=== PATIENT | female | born 1945 | race Caucasian/White ===

== ENCOUNTER 2020-05-18 09:10 | Emergency (ER) | payer OTHER, MEDICARE ==
[2020-05-18 09:19] VITALS: BP 149/77; PULSE 79; TEMP 98.7; BMI 25.7
[2020-05-18] MEDS ORDERED: ACETAMINOPHEN 325 MG TABLET (FP) PO ONE (09:49)
[2020-05-18] MEDS ORDERED: ACETAMINOPHEN 325 MG TABLET (FP) ONE (09:55)
--- NOTE | 2020-05-18 10:20 | PDOC ---
History of Present Illness - General Chief Complaint: Injury Stated Complaint: RGT HAND SWOLLEN Time Seen by Provider: 05/18/20 09:38 History Source: Patient Exam Limitations: No Limitations - History of Present Illness Initial Comments: 05/18/20 10:19 HPI: 74yo F pmh HTN, HLD, COPD (CPAP), polymyalgia (on prednisone), presenting with right hand pain since a puncture wound to the palm yesterday at noon. Punctured by brown glass bottle on palm of right hand 1cm proximal to ring finger MCP. Patient reports difficulty extending her finger last night due to swelling and pain, improved today. Noticed redness around the puncture side this morning expanding to 1cm diameter, pain at the MCP joint. Denies fevers, chills, nausea vomiting. States that no matter what she cannot stay the night in the hospital. All: NKDA Meds: Per chart PMH: As above Past History - Travel History Traveled outside of the country in the last 30 days: No Close contact w/someone who was outside of country & ill: No - Medical History Allergies/Adverse Reactions: Allergies Allergy/AdvReac Type Severity Reaction Status Date / Time No Known Drug Allergies Allergy Verified 09/30/12 09:03 Home Medications: Ambulatory Orders Aspirin Coated [Ecotrin] 81 mg PO DAILY 09/29/12 Calcium Carbonate/Vitamin D3 [Calcium + Vitamin D Tablet] 1 each PO DAILY 09/29/12 Multivits-Min/FA/Lycopene/Lut [Centrum Silver Tablet] 1 each PO DAILY 09/29/12 Nebivolol HCl [Bystolic] 5 mg PO HS 09/29/12 Rosuvastatin Calcium [Crestor] 5 mg PO HS 09/29/12 Ubidecarenone [Co Q-10] 200 mg PO DAILY 09/29/12 Valsartan/Hydrochlorothiazide [Diovan Hct 320-25 mg Tablet] 1 combo PO DAILY 09/29/12 Ibuprofen [Motrin] 600 mg PO QID PRN #0 tablet 09/30/12 Cephalexin Monohydrate [Keflex -] 500 mg PO Q8H #30 capsule 05/18/20 Diltiazem HCl [Diltiazem 24Hr Cd] 180 mg PO DAILY 05/18/20 Sulfamethoxazole/Trimethoprim [Bactrim Ds Tablet] 1 each PO BID #20 tablet 07/24/20 Cardiac Disorders: Yes (cad) COPD: No HTN: Yes Hypercholesterolemia: Yes - Surgical History Appendectomy: Yes Cardiac Surgery: Yes (cardiac cath) - Immunization History Immunization Up to Date: No - Psycho-Social/Smoking History Smoking History: Former smoker Have you smoked in the past 12 months: No If you are a former smoker, when did you quit?: 1994 Information on smoking cessation initiated: No - Substance Abuse Hx (Audit-C & DAST Scrn) How often the patient has a drink containing alcohol: Never Score: In Men: 4 or > Positive; In Women: 3 or > Positive: 0 Screen Result (Pos requires Nsg. Audit-10AR): Negative Review of Systems - Review of Systems Able to Perform ROS?: Yes Is the patient limited Ukrainian proficient: Yes Constitutional: No: Chills, Diaphoresis, Fever Respiratory: No: Cough, Shortness of Breath Cardiac (ROS): No: Chest Pain, Chest Tightness ABD/GI: No: Nausea, Vomiting Neurological: No: Headache, Numbness, Tingling, Weakness Endocrine: No: Increased Thirst, Increased Urine Hematologic/Lymphatic: No: Anemia, Blood Clots All Other Systems: Reviewed and Negative *Physical Exam - Vital Signs Last Vital Signs Temp Pulse Resp BP Pulse Ox 98.7 F 79 17 149/77 99 05/18/20 09:16 05/18/20 09:16 05/18/20 09:16 05/18/20 09:16 05/18/20 09:16 - Physical Exam 05/18/20 12:38 Vitals reviewed, AFVSS GEN: Well appearing, appears stated age, NAD, comfortable. AAOx3. HEENT: NCAT, EOMI, PERRL. Sclera anicteric, noninjected. No facial asymmetry. M oist mucous membranes. Normal voice. Trachea midline. CV: RRR, S1/S2, no murmurs / rubs / gallops appreciated. LUNG: CTABL, normal work of breathing. No wheezes, rales, rhonchi. No cough. Speaking full sentences. GI: Deferred EXTREMITIES: 2+ distal pulses. No clubbing / cyanosis / edema. No gross deformity in any extremity. SKIN: Warm, dry, no rashes appreciated, non-jaundiced. Small punture wound (1mm) on palm of right hand 1cm proximal to MCP of ring finger with 1cm lac courte oreilles of e rythema, some warmth. Normal range of motion with minimal pain over MCP with direct pressure. no crepitus, no dusky coloration. NEURO: CN grossly intact. Moving all extremities well. Normal strength and sensation grossly. ED Treatment Course - LABORATORY CBC & Chemistry Diagram: 05/18/20 10:00 05/18/20 10:00 - Medications Given in the ED: ED Medications Discontinued Medications Generic Name Dose Route Start Last Admin Trade Name Shawn PRN Reason Stop Dose Admin Acetaminophen 650 mg 05/18/20 09:49 05/18/20 09:56 Tylenol - PO 05/18/20 09:50 650 mg ONCE ONE Administration Medical Decision Making - Medical Decision Making 05/18/20 10:31 HPI: 74yo F pmh HTN, HLD, COPD (CPAP), polymyalgia (on prednisone), presenting with left hand pain since a puncture wound to the palm yesterday at noon. Exam notable for fusiform swelling, finger held in slight flexion, tenderness at MCP, surrounding warmth and erythema at site of puncture with extension up the palm toward the wrist, vitals within normal limits. Concerning for cellulitis vs less likely early tenosynovitis (improving symptoms, no streaking, no pain with extension today). - R hand xray - CBC, CMP, ESR, CRP - Tylenol - Orthopaedic consult 05/18/20 11:51 Spoke with Guerline who will see the patient in his office on Thursday Removed ring with electric ring cutter Pressure irrigated and soaked wound Demarcated area of erythema with a pen 05/18/20 12:35 - Antibiotics, first dose given, sent to pharmacy - Return precautions discussed, verbalized understanding Dispo: Home Discharge - Discharge Information Problems reviewed: Yes Clinical Impression/Diagnosis: Cellulitis of hand, right Condition: Stable Disposition: HOME - Admission No - Additional Discharge Information Prescriptions: Sulfamethoxazole/Trimethoprim [Bactrim Ds Tablet] 1 each PO BID #20 tablet Cephalexin Monohydrate [Keflex -] 500 mg PO Q8H #30 capsule - Follow up/Referral Referrals: Aditya Wakefield MD [Staff Physician] - Jacqueline Cho MD [Primary Care Provider] - - Patient Discharge Instructions Patient Printed Discharge Instructions: DI for Cellulitis -- Adult Additional Instructions: 1) Please follow-up with your primary care doctor in the next 1-2 days. Please call tomorrow for for any urgent issues. you can return to the ED if worsening symptoms over the next 48 to 72 hours despite antibiotics. - take your antibiotics - place bacitracin to your wound, it was cleaned out copiously with clean water. - you were given Dr Wakefield, who is a hand surgeon for follow up of your hand/finger infection, please keep close monitoring 2) You were given a copy of the tests performed today. Please bring the results with you and review them with your primary care doctor. Your laboratory / imaging results were normal, consistent with signs of infection/inflammation 3) If you have any worsening of symptoms or any other concerns please return to the ED immediately. Return if worsening symptoms including fevers, malodor, discharge, woresening redness and tracking of the redness/infection, headache, vomiting, dehydration, inability to take things by mouth/vomiting, altered mental status, or worsening concerning symptoms. 4) Please continue taking your home medications as directed. your medications on discharge include keflex three times a day and bactrim twice a day x 10 days . side effects may include upset stomach, abdominal pain, vomiting, or diarrhea. do not drink alcohol with your medications. Stay well hydrated and rest adequately. Make an appointment. If you cannot follow-up with your primary care doctor please return to the ED - Post Discharge Activity
[2020-05-18 10:28] LABS: BASO % 0.5 % (0-2.0); HEMATOCRIT 43.2 % (32.4-45.2); HEMOGLOBIN 14.4 GM/dL (10.7-15.3); LYMPH % 11.4 % (8-40); MCH 29.3 pg (25.7-33.7); MCHC 33.3 g/dl (32.0-36.0); MEAN CELL VOLUME 87.9 fl (80-96); MEAN PLT VOLUME 7.5 fl (7.5-11.1); MONO % 4.9 % (3.8-10.2); NEUT % 82.2 % (42.8-82.8); PLATELET COUNT 212 K/MM3 (134-434); RBC 4.91 M/mm3 (3.60-5.2); RDW 14.5 % (11.6-15.6); WHITE BLOOD COUNT 14.9 K/mm3 (4.0-10.0)
[2020-05-18 11:00] LABS: ALBUMIN 3.6 g/dl (3.4-5.0); BILIRUBIN,TOTAL 0.5 mg/dL (0.2-1); BLOOD UREA NITROGEN 24.9 mg/dL (7-18); CALCIUM 9.5 mg/dL (8.5-10.1); CREATININE 0.9 mg/dL (0.55-1.3); POTASSIUM 3.2 mmol/L (3.5-5.1); TOT PROT 6.4 g/dl (6.4-8.2)
--- NOTE | 2020-05-18 11:11 | PDOC ---
Documentation entered by Matt Quesada SCRIBE, acting as scribe for Pura Cage MD. Pura Cage MD: This documentation has been prepared by the Chuck lawson Nirvannie, SCRIBE, under my direction and personally reviewed by me in its entirety. I confirm that the documentation accurately reflects all work, treatment, procedures, and medical decision making performed by me. Attending Attestation - Resident Resident Name: AlcidesOmar stafford - ED Attending Attestation I have performed the following: I have examined & evaluated the patient, The case was reviewed & discussed with the resident, I agree w/resident's findings & plan, Exceptions are as noted - HPI HPI: 05/18/20 12:06 HPI: 74yo F pmh HTN, HLD, COPD (CPAP), polymyalgia (on prednisone), presenting with Right hand pain since a puncture wound to the palm yesterday at noon. Punctured by brown glass bottle on palm of right hand 1cm proximal to ring finger MCP. Patient reports difficulty extending her finger last night due to swelling and pain, improved today. Noticed redness around the puncture side this morning expanding to 1cm diameter, pain at the MCP joint. Denies fevers, chills, nausea vomiting,drainage or malodor. States that no matter what she cannot stay the night in the hospital. tetanus is up to date <10 years 05/18/20 12:07 - Physicial Exam PE: 05/18/20 11:08 General: NAD, well appearing HEENT: NCAT, EOMI, PERRL. airway patent Resp: no distress, speaking full sentences. Abdomen: soft, no tenderness, nondistended Vascular: 2+ DP pulses symmetric and equal. Back: no midline tenderness, no stepoffs, FROM MSK: soft compartments, shoulder abduction/adduction/flexion/extension and prox strength 5/5 actively against resistance. sensation grossly intact in median/ra dial/ulnar distribution. distal it programmer strength 5/5. 2+ radialis pulses bilaterally and symmetric. FDS And FDP intact in affected finger. right palmar hand with erythema, puncture wound adjacent to the 4th digit, erythema and warmth/swelling to the right palmar phalanx FROM, no limitation with flexion and extension. Neuro: alert, no focal neurologic deficits Skin: color normal color, warm and well perfused. Cap refill <2 sec. 05/18/20 12:07 - Medical Decision Making 05/18/20 11:09 Vital Signs Temp Pulse Resp BP Pulse Ox 98.7 F 79 17 149/77 99 05/18/20 09:16 05/18/20 09:16 05/18/20 09:16 05/18/20 09:16 05/18/20 09:16 vitals reviewed wnl ddx. fracture, cellulitis, puncture wound, absces, doubt nec fasciitis no s/s to suggest flexor tenosynovitis. finger does not have limitations with flexion and extension, compartments soft = not sausage like doubt compartment syndrome, NVI puncture wound cleaned out aggressively with sterile water, under high pressure. area demarcated no abscess to drain no systemic findings, no f/c neuro vascular intact soft compartment. no e/o compartment ring cutter used to remove her gold band that is stuck on her rt ring finger 05/18/20 11:42 X-ray of the right hand is unremarkable, there is a sclerotic density at the base of the distal phalanx of the third digit, patient is nontender there, no overt foreign body is noted, no sign of tissue air, no fracture or subluxation noted, no blastic or lytic changes. Laboratory results were remarkable for leukocytosis of 14.9K, consistent with her infection/inflammation. Patient does not appear septic, CRP is only mildly elevated 1.7, ESR is normal, remainder of her chemistries are normal including her electrolytes as well as creatinine function. No blood cultures are indicated as patient is not toxic or septic appearing or concern for bacteremia. Patient given a dose of Tylenol here and Bactrim/Keflex combination, will continue for 10-day course, strict return precautions were discussed tetanus is up to date 05/18/20 11:44 dC with hand followup, Dr Wakefield, who can see patient as outpatient referral given. pt made aware of impression and plan, agreeable, if worsening sx of infection, return 05/18/20 12:08 05/18/20 12:09 Discharge - Discharge Information Problems reviewed: Yes Clinical Impression/Diagnosis: Cellulitis of hand, right Condition: Improved Disposition: HOME - Admission No - Additional Discharge Information Prescriptions: Sulfamethoxazole/Trimethoprim [Bactrim Ds Tablet] 1 each PO BID #20 tablet Cephalexin Monohydrate [Keflex -] 500 mg PO Q8H #30 capsule - Follow up/Referral Referrals: Jacqueline Cho MD [Primary Care Provider] - Aditya Wakefield MD [Staff Physician] - - Patient Discharge Instructions Patient Printed Discharge Instructions: DI for Cellulitis -- Adult Additional Instructions: 1) Please follow-up with your primary care doctor in the next 1-2 days. Please call tomorrow for for any urgent issues. you can return to the ED if worsening symptoms over the next 48 to 72 hours despite antibiotics. - take your antibiotics - place bacitracin to your wound, it was cleaned out copiously with clean water. - you were given Dr Wakefield, who is a hand surgeon for follow up of your hand/finger infection, please keep close monitoring 2) You were given a copy of the tests performed today. Please bring the results with you and review them with your primary care doctor. Your laboratory / imaging results were normal, consistent with signs of infection/inflammation 3) If you have any worsening of symptoms or any other concerns please return to the ED immediately. Return if worsening symptoms including fevers, malodor, discharge, woresening redness and tracking of the redness/infection, headache, vomiting, dehydration, inability to take things by mouth/vomiting, altered mental status, or worsening concerning symptoms. 4) Please continue taking your home medications as directed. your medications on discharge include keflex three times a day and bactrim twice a day x 10 days . side effects may include upset stomach, abdominal pain, vomiting, or diarrhea. do not drink alcohol with your medications. Stay well hydrated and rest adequately. Make an appointment. If you cannot follow-up with your primary care doctor please return to the ED - Post Discharge Activity
[2020-05-18] MEDS ORDERED: SULFAMETHOXAZOLE/TRIMETHOPRIM 800MG/160MG D.S. TABLET PO ONE (11:43)
[2020-05-18] MEDS ORDERED: CEPHALEXIN MONOHYDRATE 500 MG CAPSULE (UD) PO ONE (11:43)
[2020-05-18] MEDS ORDERED: CEPHALEXIN MONOHYDRATE 500 MG CAPSULE (UD) ONE (11:57)
[2020-05-18] MEDS ORDERED: SULFAMETHOXAZOLE/TRIMETHOPRIM 800MG/160MG D.S. TABLET ONE (11:58)
== END 2020-05-18 12:41 | disposition home or self-care (01) ==
LOC: JER 09:10
DX: L03.113 Cellulitis of right upper limb (principal)
CPT/HCPCS: 36415; 73130-TC-RT-FY; 80053; 85025; 85651; 86140; 99284-25

== ENCOUNTER 2020-08-29 04:40 | Day surgery (SDC) | payer OTHER, MEDICARE ==
--- OUTSIDE RECORDS SUMMARY | 2020-08-15 10:17 | XMS ---
:1945 Author Organization [facility] Support Name Relationship Address Phone RE, RETIRED Unavailable Unavailable Unavailable RE Unavailable Unavailable Unavailable MARLO, MCKENNA FRIEND [address] [place] [address] REGAN TRONCOSO [address] [place] [address] REGAN TRONCOSO [address] [facility] [place] [address] Re-disclosure Warning The records that you are about to access may contain information from federally- assisted alcohol or drug abuse programs. If such information is present, then the following federally mandated warning applies: This information has been disclosed to you from records protected by federal confidentiality rules (42 CFR part 2). The federal rules prohibit you from making any further disclosure of this information unless further disclosure is expressly permitted by the written consent of the person to whom it pertains or as otherwise permitted by 42 CFR part 2. A general authorization for the release of medical or other information is NOT sufficient for this purpose. The Federal rules restrict any use of the information to criminally investigate or prosecute any alcohol or drug abuse patient.The records that you are about to access may contain highly sensitive health information, the redisclosure of which is protected by Article 27-F of the [facility] Public Health law. If you continue you may haveaccess to information: Regarding HIV / AIDS; Provided by facilities licensed or operated by the [facility] Office of Mental Health; or Provided by the [facility] Office for People With Developmental Disabilities. If such information is present, then the following [facility] mandated warning applies: This information has been disclosed to you from confidential records which are protected by state law. State law prohibits you from making any further disclosure of this information without the specific written consent of the person to whom it pertains, or as otherwise permitted by law. Any unauthorized further disclosure in violation of state law may result in a fine or residential sentence or both. A general authorization for the release of medical or other information is NOT sufficient authorization for further disclosure. Insurance Providers Payer name Policy type Policy ID Covered Covered libertarian's Policy P geno / Coverage libertarian ID relationship to [employer] Inf ormation type meraz [facility] [id number] SP [id number] 08-05 CARE OPTIONS 11 MEDICARE [id number] SP [id number] MEDICARE [id number] SP [id number] A
[2020-08-28 14:06] VITALS: BMI 25.5
--- OUTSIDE RECORDS SUMMARY | 2020-08-29 04:44 | XMS ---
:1945 Author Organization [facility] Support Name Relationship Address Phone SONIA ART COUSIN [address] [place] [address] RE, RETIRED Unavailable Unavailable Unavailable RE Unavailable Unavailable Unavailable MARLO, MCKENNA FRIEND [address] [place] [address] REGAN TRONCOSO [address] [facility] [place] [address] REGAN TRONCOSO [address] [facility] [place] [address] Re-disclosure Warning The records that you are [...] is protected by Article 27-F of the [facility] Public Health law. If you continue you may haveaccess to information: Regarding HIV / AIDS; Provided by facilities licensed or operated by the [facility] Office of Mental Health; or Provided by the [facility] Office for People With Developmental Disabilities. If such information is present, then the following [facility] mandated warning applies: This information has [...] law may result in a fine or senior care sentence or both. A general authorization for the release of medical or other information is NOT sufficient authorization for further disclosure. Insurance Providers Payer name Policy type Policy ID Covered Covered alliance party's Policy P geno / Coverage alliance party ID relationship to [employer] Inf ormation type meraz [facility] [id number] SP [id number] 08-05 CARE OPTIONS 11 MEDICARE [id number] SP [id number] MEDICARE [id number] A Results ID Date Data Source [id number] 08/24/2020 09:20:00 AM EDT [facility] Name Value Range Interpretation Description Data Sup porting Code Source(s) Document(s ) SARS [facility] coronavirus 2 RNA This lab was ordered by [facility] and reported by [facility]. Procedure
[2020-08-29 11:07] VITALS: TEMP 98.4
[2020-08-29 12:01] VITALS: BP 133/64; PULSE 55
--- NOTE | 2020-08-30 16:47 | PATH ---
Surgical Pathology Report Patient Name: ASHANTI TRONCOSO [facility]. Rec. #: [id number] /Age/Gender: 1945 (Age: 75) / F Account: [id number] Location: U-ENDOSCOPY Taken: 08/29/2020 Received: 08/29/2020 Reported: 08/30/2020 Physicians: Satish Wray M.D. Specimen(s) Received A: SECOND PORTION DUODENUM AND DUODENAL BULB B: ANTRUM C: RECTAL POLYP Clinical History Weight loss, early satiety, change in bowel habits, family history of colon cancer Postoperative diagnosis: Erosive gastritis, colon polyps, diverticulosis Final Diagnosis A. DUODENUM, SECOND PORTION AND DUODENAL BULB, BIOPSY: DUODENAL MUCOSA WITHOUT SIGNIFICANT PATHOLOGIC FINDINGS. B. STOMACH ANTRUM, BIOPSY: GASTRIC ANTRAL MUCOSA WITH MILD CHRONIC GASTRITIS AND REACTIVE/REGENERATIVE CHANGES. IMMUNOHISTOCHEMICAL STAIN FOR H. PYLORI IS NEGATIVE. C. RECTAL POLYPS, BIOPSY: HYPERPLASTIC POLYP(S). Positive and negative controls (internal if applicable) show appropriate results. Electronically Signed Jennifer Villatoro M.D. Gross Description A. Received in formalin, labeled "biopsy second portion of duodenum and duodenal bulb" are 3 shabazz, irregular portions of soft tissue ranging from 0.3-0.4 cm. in greatest dimension. The specimens are submitted in toto in one cassette. B. Received in formalin, labeled "biopsy antrum" are 3 shabazz, irregular portions of soft tissue averaging 0.4 cm. in greatest dimension. The specimens are submitted in toto in one cassette. C. Received in formalin, labeled "biopsy rectal polyps" are 4 shabazz, irregular portions of soft tissue averaging 0.3 cm. in greatest dimension. The specimens are submitted in toto in one cassette. DL/08/29/2020 saudi08/29/2020
== END 2020-08-29 12:10 | disposition home or self-care (01) ==
LOC: JASU-ENDO 04:40
PROVIDERS: ATTEND Internal Medicine Gastroenterology
PROC: 0DB98ZX Excision of Duodenum, Via Natural or Artificial Opening Endoscopic, Diagnostic (ICD-10-PCS; 2020-08-29)
PROC: 0DB68ZX Excision of Stomach, Via Natural or Artificial Opening Endoscopic, Diagnostic (ICD-10-PCS; 2020-08-29)
PROC: 0DBP8ZX Excision of Rectum, Via Natural or Artificial Opening Endoscopic, Diagnostic (ICD-10-PCS; principal; 2020-08-29 10:00)
DX: Z12.11 Encounter for screening for malignant neoplasm of colon (principal); Z86.010 Personal history of colon polyps; Z80.0 Family history of malignant neoplasm of digestive organs; K62.1 Rectal polyp; K57.30 Diverticulosis of large intestine without perforation or abscess without bleeding; K55.20 Angiodysplasia of colon without hemorrhage; K29.50 Unspecified chronic gastritis without bleeding; K21.9 Gastro-esophageal reflux disease without esophagitis; K44.9 Diaphragmatic hernia without obstruction or gangrene
CPT/HCPCS: 88305-TC; 88342-TC